=== PATIENT | male | born 1985 | race American Indian/Alaskan Native ===

== ENCOUNTER 2016-03-22 09:57 | Emergency (ER) | payer OTHER ==
[2016-03-22] MEDS ORDERED: NORCO 5/325 PO ONE (13:11)
--- NOTE | 2016-03-22 15:24 | XRay Report ---
FINAL REPORT EXAM: XR KNEE 3V LT HISTORY: knee pain s/p fall TECHNIQUE: Three views of the left knee. PRIORS: None. FINDINGS: No fracture. No dislocation. Normal mineralization. No soft tissue abnormality. No joint effusion. Mild peripheral osteophyte formations are seen surrounding the medial and patellofemoral compartments. IMPRESSION: No acute left knee abnormality.
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
[2016-03-22 16:01] VITALS: BP 142/104
== END 2016-03-22 16:00 | disposition home or self-care (01) ==
LOC: ED 09:57
DX: M25.562 Pain in left knee (principal); J45.909 Unspecified asthma, uncomplicated